=== PATIENT | male | born 1965 | race Caucasian/White ===

== ENCOUNTER 2021-11-19 10:09 | Emergency (ER) | payer BC ==
[~2021-11-19] VITALS: Ht 175.3 cm; Wt 70.5 kg
[2021-11-19 10:25] VITALS: BP 140/88
== END 2021-11-19 11:38 | disposition home or self-care (01) ==
LOC: ER 10:09
DX: S19.9XXA Unspecified injury of neck, initial encounter (principal); W19.XXXA Unspecified fall, initial encounter; Y93.89 Activity, other specified; Y92.89 Other specified places as the place of occurrence of the external cause; Y99.8 Other external cause status
CPT/HCPCS: 72125; 99284